=== PATIENT | male | born 1960 | race Caucasian/White ===

== ENCOUNTER 2022-01-04 16:19 | Inpatient (IN) ==
[2022-01-04] MEDS ORDERED: 0.9 % Sodium Chloride 1,000 ML ONE (16:44)
[2022-01-04] MEDS ORDERED: Isovue-370 500 ML BOTTLE IVP ONE (17:08)
[2022-01-04 17:15] LABS: Basophils # 0.1 K/mcL (0.0-0.2); Basophils % 0.5 %; Eosinophils # 0.1 K/mcL (0.0-0.6); Eosinophils % 0.2 %; Hematocrit 47.1 % (37.5-50.1); Hemoglobin 16.1 g/dL (12.9-16.9); Immature Granulocytes % 0.8 % (0-4); Lymphocytes # 1.6 K/mcL (0.6-4.6); Lymphocytes % 6.9 %; Mean Corpuscular HGB Conc 34.2 g/dL (31.6-35.5); Mean Corpuscular Hemoglobin 29.1 pg (28.0-33.3); Mean Corpuscular Volume 85.2 fL (83.0-100.0); Mean Platelet Volume 10.8 fL (9.4-12.4); Monocytes # 0.9 K/mcL (0.0-1.3); Monocytes % 4.1 %; Neutrophils # 20.1 K/mcL (1.6-8.9); Platelet Count 349 K/mcL (140-400); Red Blood Count 5.53 M/mcL (4.19-5.50); Red Cell Distribution Width 13.5 % (11.5-14.5); Segmented Neutrophils % 87.5 %; White Blood Count 22.9 K/mcL (4.3-11.1)
[2022-01-04 17:26] LABS: INR 1.1; Prothrombin Time 11.9 Seconds (9.4-12.1)
[2022-01-04 17:29] LABS: Activated Partial Thrombo Time 33.2 Seconds (26.0-36.0)
[2022-01-04 17:37] LABS: Alanine Aminotransferase 24 Units/L (7-52); Albumin 4.2 g/dL (3.5-5.7); Albumin/Globulin Ratio 1.2 (1.1-2.2); Alkaline Phosphatase 86 Units/L (34-104); Aspartate Amino Transferase 15 Units/L (13-39); BUN/Creatinine Ratio 9 (6-26); Bilirubin,Direct 0.2 mg/dL (0.0-0.2); Bilirubin,Indirect 0.6 mg/dL (0.0-1.0); Bilirubin,Total 0.8 mg/dL (0.3-1.0); Blood Urea Nitrogen 17 mg/dL (6-20); Calcium 9.4 mg/dL (8.6-10.3); Carbon Dioxide 26 mEq/L (23-29); Chloride 95 mEq/L (98-107); Creatine Kinase 44 Units/L (30-223); Globulin 3.4 g/dL (2.4-3.5); Glucose 298 mg/dL (70-105); Osmolality,Calculated 291 (280-300); Potassium 3.9 mEq/L (3.5-5.1); Sodium 134 mEq/L (136-145); Total Protein 7.6 g/dL (6.4-8.9); Troponin I < 0.03 ng/mL (< 0.04); eGFR For African Americans 43 (> 60); eGFR For Non-African Americans 35 (> 60)
[2022-01-04] MEDS ORDERED: 0.9 % Sodium Chloride 1,000 ML IV ONE ×2 (18:01→19:53)
[2022-01-04 19:44] LABS: Bacteria,Urine Few per hpf (None-Few); Bilirubin,Urine Negative (Negative); Blood,Urine Negative (Negative); Clarity,Urine Turbid (Clear); Color,Urine Light-Yellow (Yellow); Glucose,Urine (UA) 50 mg/dL (Normal); Granular Casts,Urine Few per lpf (None Seen); Ketones,Urine Negative (Negative); Leukocyte Esterase,Urine Negative (Negative); Mucus,Urine Few per lpf (None-Few); Nitrite,Urine Negative (Negative); Protein,Urine 70 mg/dL (Neg-Trace); RBC,Urine 0-3 per hpf (0-3); Specific Gravity,Urine 1.011 (1.010-1.025); Squamous Epithelial Cell,Urine Few per hpf (None-Few); Urobilinogen,Urine Normal (Normal)
[2022-01-04 19:48] LABS: Influenza A PCR Negative (Negative); Influenza B PCR Negative (Negative); Resp. Syncytial Virus PCR Negative (Negative); SARS-CoV-2 by PCR (In House) Negative (Negative)
[2022-01-04] MEDS ORDERED: Dextrose 4 GM Chewable Tablets PO PRN ×2 (20:23)
[2022-01-04] MEDS ORDERED: *HR* Dextrose 50 % in Water (Syg) 50 ML SYRINGE IVP PRN (20:23)
[2022-01-04] MEDS ORDERED: D5% in Water 1,000 ML IVC PRN (20:23)
[2022-01-04] MEDS ORDERED: Ondansetron 4 MG/2 ML VIAL IVP PRN (20:25)
[2022-01-04] MEDS ORDERED: Naloxone 0.4 MG/ML INJ IVP PRN (20:25)
[2022-01-04 23:12] LABS: Calcium 9.1 mg/dL (8.6-10.3); Potassium 4.2 mEq/L (3.5-5.1)
[2022-01-04] MEDS ORDERED: Perflutren Lipid Microsphere 1.3 ML in 0.9 % Sodium Chloride 8.7 ML IVP PRN (23:45)
[2022-01-04] MEDS ORDERED: Insulin DETEMIR 100 UNIT/ML X5UNITS SUBQ SCH (23:45)
[2022-01-05] MEDS ORDERED: Nitroglycerin 0.4 MG TAB.SUBL SL PRN (00:05)
[2022-01-05] MEDS: 0.9 % Sodium Chloride 1,000 ML IVC SCH ×3 (00:34→17:05)
[2022-01-05] MEDS: Insulin LISPRO 300 UNITS/3 ML VIAL SUBQ SCH ×4 (00:36→17:06)
[2022-01-05 05:39] LABS: Hematocrit 45.1 % (37.5-50.1); Hemoglobin 15.2 g/dL (12.9-16.9); Mean Corpuscular HGB Conc 33.7 g/dL (31.6-35.5); Mean Corpuscular Hemoglobin 29.2 pg (28.0-33.3); Mean Corpuscular Volume 86.6 fL (83.0-100.0); Mean Platelet Volume 11.1 fL (9.4-12.4); Platelet Count 303 K/mcL (140-400); Red Blood Count 5.21 M/mcL (4.19-5.50); Red Cell Distribution Width 13.9 % (11.5-14.5); White Blood Count 20.7 K/mcL (4.3-11.1)
[2022-01-05 05:51] LABS: Prothrombin Time 11.5 Seconds (9.4-12.1)
[2022-01-05 05:53] LABS: Activated Partial Thrombo Time 34.4 Seconds (26.0-36.0)
[2022-01-05] MEDS ORDERED: Aspirin 325 MG TABLET PO ONE (06:03)
[2022-01-05 06:07] LABS: BUN/Creatinine Ratio 15 (6-26); Blood Urea Nitrogen 23 mg/dL (6-20); Calcium 9.1 mg/dL (8.6-10.3); Carbon Dioxide 26 mEq/L (23-29); Chloride 98 mEq/L (98-107); Chol/HDL Ratio 6.9 (0-4.9); Cholesterol 117 mg/dL (< 200); Glucose 191 mg/dL (70-105); HDL Cholesterol 17 mg/dL (40-59); Osmolality,Calculated 287 (280-300); Potassium 3.7 mEq/L (3.5-5.1); Sodium 134 mEq/L (136-145); Triglycerides 437 mg/dL (< 150); eGFR For African Americans 55 (> 60); eGFR For Non-African Americans 45 (> 60)
[2022-01-05 06:52] LABS: Estimated Average Glucose 163 mg/dl; Hemoglobin A1C 7.3 %
[2022-01-05] MEDS ORDERED: BuPROPion XL (24 HR) 150 MG TABLET PO SCH (09:00)
[2022-01-05] MEDS ORDERED: Isosorbide MONOnitrate (24 HR) 30 MG TAB.ER.24H PO SCH (09:00)
[2022-01-05] MEDS ORDERED: Aspirin Enteric Coated 81 MG Tablet PO SCH (09:00)
[2022-01-05] MEDS: Insulin DETEMIR 100 UNIT/ML X5UNITS SUBQ SCH ×2 (09:11→22:06)
[2022-01-05] MEDS: Metoprolol XL (24 HR) Succ 50 MG TAB.ER.24H PO SCH (09:12)
[2022-01-05] MEDS: Gabapentin 300 MG CAPSULE PO SCH ×3 (09:12→22:06)
[2022-01-05] MEDS ORDERED: Acetaminophen 325 MG TABLET PO ONE (14:42)
[2022-01-05] MEDS: *HR* Heparin 5,000 UNIT/ML VIAL SQ SCH (17:05)
[2022-01-06] MEDS: Insulin LISPRO 300 UNITS/3 ML VIAL SUBQ SCH ×5 (03:05→23:15)
[2022-01-06] MEDS: 0.9 % Sodium Chloride 1,000 ML IVC SCH ×4 (04:27→23:05)
[2022-01-06] MEDS: *HR* Heparin 5,000 UNIT/ML VIAL SQ SCH ×2 (04:27→17:29)
[2022-01-06] MEDS ORDERED: Acetaminophen 325 MG TABLET PO ONE (05:28)
[2022-01-06 06:07] LABS: Basophils # 0.1 K/mcL (0.0-0.2); Basophils % 0.6 %; Eosinophils # 0.4 K/mcL (0.0-0.6); Eosinophils % 2.5 %; Hematocrit 42.3 % (37.5-50.1); Hemoglobin 14.2 g/dL (12.9-16.9); Immature Granulocytes % 0.3 % (0-4); Lymphocytes % 14.1 %; Mean Corpuscular HGB Conc 33.6 g/dL (31.6-35.5); Mean Corpuscular Volume 86.5 fL (83.0-100.0); Mean Platelet Volume 10.8 fL (9.4-12.4); Monocytes % 7.4 %; Neutrophils # 10.4 K/mcL (1.6-8.9); Platelet Count 282 K/mcL (140-400); Red Blood Count 4.89 M/mcL (4.19-5.50); Red Cell Distribution Width 13.6 % (11.5-14.5); Segmented Neutrophils % 75.1 %; White Blood Count 13.9 K/mcL (4.3-11.1)
[2022-01-06 06:24] LABS: BUN/Creatinine Ratio 15 (6-26); Blood Urea Nitrogen 16 mg/dL (6-20); Calcium 9.3 mg/dL (8.6-10.3); Carbon Dioxide 28 mEq/L (23-29); Chloride 106 mEq/L (98-107); Glucose 96 mg/dL (70-105); Osmolality,Calculated 293 (280-300); Phosphorous 2.1 mg/dL (2.7-4.5); Potassium 4.1 mEq/L (3.5-5.1); Sodium 141 mEq/L (136-145); eGFR For African Americans > 60 (> 60); eGFR For Non-African Americans > 60 (> 60)
[2022-01-06] MEDS ORDERED: Isovue-370 500 ML BOTTLE IVP ONE (08:38)
[2022-01-06] MEDS: Gabapentin 300 MG CAPSULE PO SCH ×3 (08:48→20:32)
[2022-01-06] MEDS: Aspirin Enteric Coated 81 MG Tablet PO SCH (08:48)
[2022-01-06] MEDS: Insulin DETEMIR 100 UNIT/ML X5UNITS SUBQ SCH ×2 (08:48→20:30)
[2022-01-06] MEDS: BuPROPion SR (12 HR) 150 MG TABLET PO SCH ×2 (08:48→20:32)
[2022-01-06] MEDS ORDERED: Regadenoson 0.4 MG/5 ML SYRINGE IVP ONE (08:49)
[2022-01-06] MEDS: Metoprolol XL (24 HR) Succ 50 MG TAB.ER.24H PO SCH (08:49)
[2022-01-06] MEDS ORDERED: NON-FORMULARY MEDICATION 1 EACH EACH (Gabapentin [Neurontin] 600 MG Tablet) PO SCH (09:00)
[2022-01-06] MEDS ORDERED: *HR* OxyCODONE Immed Rel 5 MG TABLET PO ONE (14:58)
[2022-01-07] MEDS: *HR* Heparin 5,000 UNIT/ML VIAL SQ SCH ×2 (05:02→18:26)
[2022-01-07] MEDS: Insulin LISPRO 300 UNITS/3 ML VIAL SUBQ SCH ×4 (05:12→23:16)
[2022-01-07 05:20] LABS: BUN/Creatinine Ratio 11 (6-26); Blood Urea Nitrogen 11 mg/dL (6-20); Calcium 8.9 mg/dL (8.6-10.3); Carbon Dioxide 29 mEq/L (23-29); Chloride 104 mEq/L (98-107); Glucose 217 mg/dL (70-105); Magnesium 1.8 mg/dL (1.6-2.6); Osmolality,Calculated 292 (280-300); Phosphorous 3.2 mg/dL (2.7-4.5); Potassium 4.2 mEq/L (3.5-5.1); Sodium 138 mEq/L (136-145); eGFR For African Americans > 60 (> 60); eGFR For Non-African Americans > 60 (> 60)
[2022-01-07] MEDS ORDERED: Regadenoson 0.4 MG/5 ML SYRINGE IVP ONE (06:02)
[2022-01-07 08:34] LABS: Basophils # 0.1 K/mcL (0.0-0.2); Basophils % 0.5 %; Eosinophils # 0.3 K/mcL (0.0-0.6); Eosinophils % 2.5 %; Hematocrit 38.8 % (37.5-50.1); Hemoglobin 12.7 g/dL (12.9-16.9); Immature Granulocytes % 0.4 % (0-4); Lymphocytes # 1.5 K/mcL (0.6-4.6); Lymphocytes % 13.6 %; Mean Corpuscular HGB Conc 32.7 g/dL (31.6-35.5); Mean Corpuscular Volume 88.6 fL (83.0-100.0); Mean Platelet Volume 11.1 fL (9.4-12.4); Monocytes # 0.8 K/mcL (0.0-1.3); Monocytes % 7.5 %; Neutrophils # 8.2 K/mcL (1.6-8.9); Platelet Count 252 K/mcL (140-400); Red Blood Count 4.38 M/mcL (4.19-5.50); Red Cell Distribution Width 13.7 % (11.5-14.5); Segmented Neutrophils % 75.5 %; White Blood Count 10.9 K/mcL (4.3-11.1)
[2022-01-07] MEDS ORDERED: *HR* OxyCODONE Immed Rel 5 MG TABLET PO ONE (11:26)
[2022-01-07] MEDS: Insulin DETEMIR 100 UNIT/ML X5UNITS SUBQ SCH ×2 (13:29→20:31)
[2022-01-07] MEDS: BuPROPion SR (12 HR) 150 MG TABLET PO SCH ×2 (13:29→18:26)
[2022-01-07] MEDS: Aspirin Enteric Coated 81 MG Tablet PO SCH (13:29)
[2022-01-07] MEDS: Gabapentin 300 MG CAPSULE PO SCH ×3 (13:30→20:38)
[2022-01-07] MEDS: Metoprolol XL (24 HR) Succ 50 MG TAB.ER.24H PO SCH (18:19)
[2022-01-07] MEDS: 0.9 % Sodium Chloride 1,000 ML IVC SCH ×2 (18:24→19:16)
[2022-01-08] MEDS: 0.9 % Sodium Chloride 1,000 ML IVC SCH ×2 (02:14→11:41)
[2022-01-08] MEDS: *HR* Heparin 5,000 UNIT/ML VIAL SQ SCH ×2 (05:00→17:17)
[2022-01-08] MEDS: Insulin LISPRO 300 UNITS/3 ML VIAL SUBQ SCH ×3 (05:30→17:17)
[2022-01-08] MEDS: Gabapentin 300 MG CAPSULE PO SCH ×3 (09:22→20:05)
[2022-01-08] MEDS: Insulin DETEMIR 100 UNIT/ML X5UNITS SUBQ SCH ×2 (09:22→22:31)
[2022-01-08] MEDS: Aspirin Enteric Coated 81 MG Tablet PO SCH (09:22)
[2022-01-08] MEDS: Metoprolol XL (24 HR) Succ 50 MG TAB.ER.24H PO SCH (09:22)
[2022-01-08] MEDS ORDERED: Acetaminophen 325 MG TABLET PO ONE (09:44)
[2022-01-08] MEDS: BuPROPion SR (12 HR) 150 MG TABLET PO SCH ×2 (09:51→20:05)
[2022-01-08] MEDS: Isosorbide MONOnitrate (24 HR) 30 MG TAB.ER.24H PO SCH (09:51)
[2022-01-08] MEDS ORDERED: Heparin 1,000 UNITS/500 mL 500 ML ONE (15:42)
[2022-01-08] MEDS ORDERED: *HR* Heparin 10,000 UNIT/10 ML VIAL ONE (15:42)
[2022-01-08] MEDS ORDERED: ISOVUE-370 200 ML INFUS..BTL ONE (15:42)
[2022-01-08] MEDS ORDERED: Nitroglycerin 1,000 MCG/5 ML VIAL IV ONE (15:42)
[2022-01-08] MEDS ORDERED: 0.9 % Sodium Chloride 2,000 ML ONE (15:42)
[2022-01-08] MEDS ORDERED: *HR* FentaNYL (PF) 100 MCG/2 ML VIAL ONE (15:59)
[2022-01-08] MEDS ORDERED: *HR* Midazolam HCl 2 MG/2 ML VIAL ONE ×2 (15:59→16:07)
[2022-01-08] MEDS: Acetaminophen 325 MG TABLET PO PRN (17:16)
[2022-01-09] MEDS: Insulin LISPRO 300 UNITS/3 ML VIAL SUBQ SCH ×3 (01:05→12:37)
[2022-01-09] MEDS: Acetaminophen 325 MG TABLET PO PRN ×2 (01:13→08:29)
[2022-01-09] MEDS: *HR* Heparin 5,000 UNIT/ML VIAL SQ SCH (05:48)
[2022-01-09 07:03] VITALS: TEMP 98; O2SAT 93
[2022-01-09] MEDS: Gabapentin 300 MG CAPSULE PO SCH (08:29)
[2022-01-09] MEDS: Metoprolol XL (24 HR) Succ 50 MG TAB.ER.24H PO SCH (08:29)
[2022-01-09] MEDS: Aspirin Enteric Coated 81 MG Tablet PO SCH (08:29)
[2022-01-09] MEDS: BuPROPion SR (12 HR) 150 MG TABLET PO SCH (08:30)
[2022-01-09] MEDS: Insulin DETEMIR 100 UNIT/ML X5UNITS SUBQ SCH (08:30)
[2022-01-09] MEDS: Isosorbide MONOnitrate (24 HR) 30 MG TAB.ER.24H PO SCH (08:30)
[2022-01-09] MEDS ORDERED: lisinopriL 20 MG TABLET PO SCH (09:00)
[2022-01-09] MEDS ORDERED: hydroCHLOROthiazide 25 MG TABLET PO SCH (09:00)
[2022-01-09 10:22] VITALS: BP 157/93; PULSE 78
== END 2022-01-09 13:01 | disposition home or self-care (01) | DRG 192 ==
LOC: EMEROOARM 16:19 → 3BNU 16:19 → SUATTDRO 20:46 → 3BNU 21:21
PROVIDERS: ADMIT Internal Medicine; ATTEND Internal Medicine